=== PATIENT | male | born 1960 | race Caucasian/White ===

== ENCOUNTER 2022-05-16 15:18 | Outpatient (CLI) | payer OTHER | END 2022-05-16 15:19 | disposition home or self-care (01) | LOC: CSHRAD 15:18 | PROVIDERS: ATTEND Registered Nurse Community Health | DX: M54.40 Lumbago with sciatica, unspecified side (principal); M47.816 Spondylosis without myelopathy or radiculopathy, lumbar region | CPT/HCPCS: 72100 ==

== ENCOUNTER 2023-11-22 07:48 | Emergency (ER) | payer MEDICARE ==
[2023-11-22] MEDS ORDERED: dilTIAZem 25 MG/5 ML VIAL ONE (08:07)
[2023-11-22 08:09] LABS: #Eosinphils 0.1 10x3/uL (0.0-0.5); #Monocytes 0.6 10x3/uL (0.0-1.1); #Neutrophils 3.3 10x3/uL (1.5-8.4); %Basophils 0.7 % (0.0-2.0); %Lymphocytes 32.4 % (18.0-47.0); %Monocytes 9.6 % (0.0-10.0); Hemoglobin 16.1 g/dL (13.5-17.5); Mean Corpuscular HGB CONC 35.8 g/dL (32.0-36.0); Mean Corpuscular Hemoglobin 32.5 pg (27.0-33.0); Mean Corpuscular Volume 90.7 fl (81.2-95.1); Mean Platelet Volume 9.4 fl (7.4-10.4); Platelet Count 225 10x3/uL (150-450); Red Blood Cell (RBC) Count 4.96 10x6/uL (4.32-5.72); White Blood Cell (WBC) Count 5.8 10x3/uL (3.5-10.5)
[2023-11-22 08:36] LABS: ALT (SGPT) 44 U/L (8-55); AST (SGOT) 25 U/L (5-34); Alkaline Phosphatase 72 U/L (40-110); Anion Gap 14 mmol/L (10-20); BUN (Urea Nitrogen) 12 mg/dL (8.4-25.7); Bilirubin, Total 0.8 mg/dL (0.2-1.2); Calc. Creatinine Clearance 0 mL/min (70-130); Calcium 8.8 mg/dL (7.8-10.44); Carbon Dioxide 21 mmol/L (23-31); Chloride 107 mmol/L (98-107); Estimated GFR 82; Globulin 2.6 g/dL (2.4-3.5); Glucose 119 mg/dL (80-115); Potassium 4.1 mmol/L (3.5-5.1); Protein, Total 6.6 g/dL (5.8-8.1); Sodium 138 mmol/L (136-145)
[2023-11-22 09:29] LABS: Troponin I Less than 0.010 ng/mL (< 0.028)
== END 2023-11-22 10:24 | disposition home or self-care (01) ==
LOC: CSHERS 07:48
DX: I48.91 Unspecified atrial fibrillation (principal)
CPT/HCPCS: 71045; 80053; 84484; 85025; 93005; 93010; 96374